=== PATIENT | female | born 1995 | race Caucasian/White ===

== ENCOUNTER 2019-02-18 19:48 | Emergency (ER) | payer MEDICAID ==
[~2019-02-18] VITALS: Ht 160 cm; Wt 59.0 kg
[2019-02-18 20:00] VITALS: BP 115/62
--- NOTE | 2019-02-18 20:00 | NUR ---
TO BED # 04 AMBULATORY
[2019-02-18] MEDS ORDERED: KETOROLAC 60 MG/2 ML VIAL IM ONE (20:10)
--- NOTE | 2019-02-18 20:20 | NUR ---
pt states she just used the bathroom, she is on her period and is on birthcontrol, pt does not wish to have test done and wants to have pain medication now. pt made aware of toradol side effect, dr nicole made aware and okayed to give pt med.
[2019-02-18] MEDS ORDERED: MORPHINE SULFATE 4 MG/ML SYR IM ONE (20:45)
--- NOTE | 2019-02-18 20:50 | NUR ---
pt c/o continued pain 06/22, dr nicole made aware, will continue with new orders.
[2019-02-18 21:37] VITALS: BP 115/62
--- NOTE | 2019-02-18 21:37 | NUR ---
Patient discharged with v/s stable. Written and verbal after care instructions given and explained. Patient alert, oriented and verbalized understanding of instructions. Ambulatory with steady gait. All questions addressed prior to discharge. ID band removed. Patient advised to follow up with PMD. Rx of MOTRIN AND NORCO WAS given. Patient educated on indication of medication including possible reaction and side effects. Opportunity to ask questions provided and answered. PATIENT STATED THAT HER PAIN LEVEL HAD TO A 3/10 PRIOR TO D/C.
== END 2019-02-18 21:37 | disposition home or self-care (01) ==
LOC: MED 19:48
DX: K08.89 Other specified disorders of teeth and supporting structures (principal)
CPT/HCPCS: 96372; 99283; J1885; J2270

== ENCOUNTER 2019-11-23 16:47 | Emergency (ER) | payer MEDICAID, OTHER ==
[~2019-11-23] VITALS: Ht 162.6 cm; Wt 57.2 kg
[2019-11-23 16:51] VITALS: BP 117/73
[2019-11-23 17:28] VITALS: BP 117/73
== END 2019-11-23 17:27 | disposition home or self-care (01) ==
LOC: MED 16:47
DX: F41.9 Anxiety disorder, unspecified (principal)
CPT/HCPCS: 99283

== ENCOUNTER 2020-04-28 00:06 | Emergency (ER) | payer OTHER ==
[~2020-04-28] VITALS: Ht 162.6 cm; Wt 59.0 kg
[2020-04-28 00:22] VITALS: BP 98/58
[2020-04-28] MEDS ORDERED: ACETAMINOPHEN 325 MG TAB PO ONE (00:55)
[2020-04-28 01:11] VITALS: BP 106/59
[2020-04-28 01:18] LABS: HEMATOCRIT 31.6 % (36-48); HEMOGLOBIN 9.7 g/dL (12.0-16.0); MEAN CORPUSCULAR HEMOGLOBIN 22 pg (27-31); MEAN CORPUSCULAR HGB CONC 31 g/dL (33-37); MEAN CORPUSCULAR VOLUME 70.6 fL (80-94); PLATELET COUNT (AUTO) 297 K/uL (140-450); RED BLOOD CELL COUNT(AUTO) 4.47 MIL/uL (4.20-5.40); RED CELL DISTRIBUTION WIDTH 18.1 % (11.6-13.7)
[2020-04-28 01:26] LABS: ALBUMIN 4.3 g/dL (3.4-5.0); ANION GAP 12.2 (8-16); CARBON DIOXIDE 27.6 mmol/L (21-32); CREATININE 0.9 mg/dL (0.6-1.3); POTASSIUM 3.8 mmol/L (3.5-5.1); TOTAL BILIRUBIN 0.9 mg/dL (0.0-1.0)
[2020-04-28 01:41] LABS: EOSINOPHILS % (MANUAL) 4 % (0-4); LYMPHOCYTES % (MANUAL) 35 % (20-46); MONOCYTES % (MANUAL) 3 % (5-12)
== END 2020-04-28 01:59 | disposition home or self-care (01) ==
LOC: MED 00:06
DX: N92.5 Other specified irregular menstruation (principal); D50.9 Iron deficiency anemia, unspecified; R07.9 Chest pain, unspecified; F17.210 Nicotine dependence, cigarettes, uncomplicated
CPT/HCPCS: 36415; 80053; 81025; 85025; 93005; 99284

== ENCOUNTER 2020-05-30 20:01 | Emergency (ER) | payer OTHER ==
[~2020-05-30] VITALS: Ht 162.6 cm; Wt 55.8 kg
[2020-05-30 20:07] VITALS: BP 130/77
--- NOTE | 2020-05-30 20:25 | NUR ---
PT AMBULATED TO BED 12 WITH STEADY GAIT.
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
--- NOTE | 2020-05-30 20:38 | NUR ---
PT TAKEN TO XRAY VIA W/C
--- NOTE | 2020-05-30 20:54 | NUR ---
PT RETURNED FROM XRAY VIA W/C.
--- NOTE | 2020-05-30 21:18 | NUR ---
ERMD AT BEDSIDE.
[2020-05-30 21:25] VITALS: BP 130/77
--- NOTE | 2020-05-30 21:25 | NUR ---
Patient discharged with v/s stable. Written and verbal after care instructions given and explained. Patient alert, oriented and verbalized understanding of instructions. Ambulatory with steady gait. All questions addressed prior to discharge. ID band removed. Patient advised to follow up with PMD. Rx of OXYMETZOLINE given. Patient educated on indication of medication including possible reaction and side effects. Opportunity to ask questions provided and answered.
== END 2020-05-30 21:25 | disposition home or self-care (01) ==
LOC: MED 20:01
DX: R04.0 Epistaxis (principal); R51 Headache; H92.02 Otalgia, left ear; Y08.89XA Assault by other specified means, initial encounter; Y93.89 Activity, other specified; Y92.89 Other specified places as the place of occurrence of the external cause; Y99.8 Other external cause status
CPT/HCPCS: 70160; 90471; 90715; 99283